=== PATIENT | female | born 1955 ===

== ENCOUNTER 2019-04-19 10:54 | Emergency (ER) | payer OTHER ==
[~2019-04-19] VITALS: Ht 160 cm; Wt 113.4 kg
[~2019-04-19 10:54] MED LIST: ACEBUTCAFT PO; ASCO500; ASPI325EC PO; Ativan1 MG PO; CALCA500CH; CALCAVITD PO; DIGO.125; DIGO.125 PO; ERGO50000 PO; FURO40 PO; FURO80; FURO80 PO; GLIM2 PO; GLIM4 PO; HYDR1TAB94 PO; IRON50; Kristalose20 GM PO; LAMO100; LEVE500 PO; LISI10; LISI20 PO; LISI5 PO; METF500 PO; METF850 PO; METO25 PO; METO25ER PO; MULVITMINE; OXYACE5T PO; PIOG15; PIOG45 PO; PRAV20; PRAV20 PO; PROM25 PO; RANI150 PO; SPIR25; WARF5
[2019-04-19 13:48] LABS: BASOPHILS ABSOLUTE AUTO 0.03 K/mm3 (0.00-0.23); BASOPHILS PERCENT AUTO 0 % (0-2); EOSINOPHILS ABSOLUTE AUTO 0.15 K/mm3 (0.00-0.68); EOSINOPHILS PERCENT AUTO 2 % (0-6); Hematocrit 37.3 % (33.0-51.0); Hemoglobin 12.1 g/dL (11.5-16.0); IMMATURE GRAN ABSOLUTE AUTO 0.01 K/mm3 (0.00-0.10); IMMATURE GRAN PERCENT AUTO 0 % (0-1); LYMPHOCYTES ABSOLUTE AUTO 0.95 K/mm3 (0.84-5.20); LYMPHOCYTES PERCENT AUTO 14 % (21-46); MONOCYTES ABSOLUTE AUTO 0.56 K/mm3 (0.16-1.47); MONOCYTES PERCENT AUTO 8 % (4-13); Mean Corpuscular HGB 31.3 pg (26.0-34.0); Mean Corpuscular HGB Conc 32.4 g/dL (31.5-36.5); Mean Corpuscular Volume 96 fL (80-100); Mean Platelet Volume 11.8 fL (9.1-12.4); NEUTROPHILS PERCENT AUTO 75 % (41-73); Platelet Count 192 K/mm3 (150-400); RDW Coefficient Variation 13.2 % (11.7-14.2); RDW Standard Deviation 47.4 fL (35.1-46.3); Red Blood Cell Count 3.87 M/mm3 (3.80-5.20)
[2019-04-19 14:05] LABS: Albumin, Blood 4.1 g/dL (3.4-5.0); Albumin/Globulin Ratio 1.1 (0.8-1.8); Bilirubin, Total 0.3 mg/dL (0.1-1.0); Bun/Creatinine Ratio 17.9 (12.0-20.0); Calcium, Blood 8.9 mg/dL (8.5-10.1); Creatinine, Blood 2.24 mg/dL (0.40-1.00); Globulin, Blood 3.7 g/dL (2.2-4.0); Potassium, Blood 5.1 mmol/L (3.5-5.5); Total Protein, Blood 7.8 g/dL (6.4-8.2)
[2019-04-19] MEDS ORDERED: Norco 5-325 Ta1 EACH PO (14:32)
== END 2019-04-19 14:55 | disposition home or self-care (01) ==
LOC: ER 10:54
PROVIDERS: Emergency Medicine
DX: M79.604 Pain in right leg (principal); I25.2 Old myocardial infarction; Z86.73 Personal history of transient ischemic attack (TIA), and cerebral infarction without residual deficits; I50.9 Heart failure, unspecified; K21.9 Gastro-esophageal reflux disease without esophagitis; Z87.891 Personal history of nicotine dependence
CPT/HCPCS: 36415; 80053; 85025; 96374; 99283-25; J1170

== ENCOUNTER 2019-04-23 09:51 | Emergency (ER) | payer OTHER ==
[~2019-04-23] VITALS: Ht 160 cm; Wt 108.9 kg
[~2019-04-23 09:51] MED LIST changes: +Norco 5-325 Ta1 EACH PO
[2019-04-23] MEDS ORDERED: Ultram50 MG PO (10:38)
[2019-04-23] MEDS ORDERED: Cyclobenzaprine5 MG PO (10:38)
== END 2019-04-23 10:55 | disposition home or self-care (01) ==
LOC: ER 09:51
DX: M79.604 Pain in right leg (principal); G89.29 Other chronic pain; Z79.899 Other long term (current) drug therapy; Z79.84 Long term (current) use of oral hypoglycemic drugs; Z86.73 Personal history of transient ischemic attack (TIA), and cerebral infarction without residual deficits; I25.2 Old myocardial infarction; I50.9 Heart failure, unspecified; K21.9 Gastro-esophageal reflux disease without esophagitis; N18.9 Chronic kidney disease, unspecified; Z87.891 Personal history of nicotine dependence
CPT/HCPCS: 99283

== ENCOUNTER → 2025-01-18 | Outpatient (CLI) | payer OTHER ==
[~2025-01-18] MED LIST changes: +Cyclobenzaprine5 MG PO; +Ultram50 MG PO
== END | disposition home or self-care (01) ==
LOC: LAB SHORT 08:37 → PLD 08:37 → LAB 08:37
DX: D36.10 Benign neoplasm of peripheral nerves and autonomic nervous system, unspecified (principal); D49.2 Neoplasm of unspecified behavior of bone, soft tissue, and skin
CPT/HCPCS: 88305

== ENCOUNTER 2025-08-03 09:50 | Inpatient (IN) | payer OTHER ==
[~2025-08-03] VITALS: Ht 160 cm; Wt 127.0 kg
[2025-08-03] MEDS ORDERED: CefTRIAXone Sodium 2,000 MG in NS 100 ML IV ONE (12:25)
[2025-08-03] MEDS ORDERED: Ketorolac Tromethamine 30mg Vial IV ONE (12:30)
[2025-08-03 12:39] LABS: Alanine Aminotransfer (ALT/SGP 26.0 U/L (12-78); Albumin, Blood 3.2 g/dL (3.4-5.0); Albumin/Globulin Ratio 0.8 (0.8-1.8); Anion Gap 17.0 mmol/L (3-11); Aspartate Aminotrans (AST/SGOT 44.0 U/L (12-37); Bilirubin, Total 1.4 mg/dL (0.1-1.0); Blood Urea Nitrogen 42.0 mg/dL (8-24); CO2, Blood 19.0 mmol/L (21-32); Calcium, Blood 8.5 mg/dL (8.5-10.1); Chloride, Blood 104.0 mmol/L (98-108); Creatinine, Blood 2.54 mg/dL (0.40-1.00); Globulin, Blood 3.9 g/dL (2.2-4.0); Glucose, Blood 168.0 mg/dL (70-99); Hematocrit 42.1 % (33.0-51.0); Hemoglobin 14.1 g/dL (11.5-16.0); Mean Corpuscular HGB Conc 33.5 g/dL (31.5-36.5); Mean Corpuscular Volume 93 fL (80-100); NRBC ABSOLUTE 0.02 K/mm3 (0.00-0.02); NRBC Auto 0.2 /100 WBC (0.0-0.2); Potassium, Blood 4.5 mmol/L (3.5-5.5); RDW Coefficient Variation 13.2 % (11.7-14.2); RDW Standard Deviation 45.1 fL (35.1-46.3); Sodium, Blood 135.0 mmol/L (136-145); Total Protein, Blood 7.1 g/dL (6.4-8.2)
[2025-08-03] MEDS ORDERED: NS 1,000 ML IV SCH ×3 (13:05→15:20)
[2025-08-03 13:34] LABS: BAND PERCENT MAN 30 % (0-8); BASOPHILS ABSOLUTE MAN 0.00 K/mm3 (0.00-0.23); BASOPHILS PERCENT MAN 0 % (0-2); EOSINOPHILS ABSOLUTE MAN 0.00 K/mm3 (0.00-0.68); EOSINOPHILS PERCENT MAN 0 % (0-6); LYMPHOCYTES ABSOLUTE MAN 0.69 K/mm3 (0.84-5.20); LYMPHOCYTES PERCENT MAN 6 % (21-46); METAMYELOCYTE ABSOLUTE MAN 0.23 K/mm3 (0.00-0.00); METAMYELOCYTE PERCENT MAN 2 % (0-0); MONOCYTES ABSOLUTE MAN 1.04 K/mm3 (0.16-1.47); MONOCYTES PERCENT MAN 9 % (4-13); NEUTROPHILS ABSOLUTE MAN 9.61 K/mm3 (1.96-9.15); SEG NEUTROPHILS PERCENT MAN 53 % (41-73)
[2025-08-03] MEDS ORDERED: Ondansetron HCl 2 MG / ML 2ML Vial IV ONE (13:55)
[2025-08-03 14:05] LABS: pH Blood Venous 7.29 (7.34-7.37)
[2025-08-03] MEDS ORDERED: Insulin Human Lispro 100 Units/ML 3ML Syringe SC SCH (16:30)
[2025-08-03 16:55] LABS: Source, Urine Clean Catch
[2025-08-03] MEDS ORDERED: NS 1,000 ML IV ONE (16:55)
[2025-08-03 17:03] LABS: Color, Urine Yellow (P-Yellow); Glucose Qualitative, Urine Neg (Neg); Ketones, Urine Neg (Neg); Leukocyte Esterase, Urine 1+ (Neg); Protein, Urine 3+ (Neg); Specific Gravity, Urine 1.020 (1.003-1.022); Urobilinogen, Urine 1+ (Normal)
[2025-08-03 17:11] LABS: Bilirubin, Urine 1+ (Neg)
--- NOTE | 2025-08-03 18:40 | NUR ---
PT ADMIT/SHIFT SUMMARY.... PT ARRIVED TO THE UNIT AT 1610. PT IS A&O TO SELF AND FOLLOWING DIRECTIONS, PT HAS DYSPHASIA SHE IS ABLE TO ANSWER "YES/NO" QUESTIONS BUT IS UNABLE TO VERBALIZE ANYTHING ELSE. PT IS IN SR 80'S-90'S BP IS STABLE WITH MAPS>65, LEVOPHED WAS STARTED AT 5MCG/MIN IN THE ED BUT WAS STOPPED UPON ARRIVAL TO THE UNIT AND HAS NOT NEEDED TO BE RESTARTED. PT IS ON RA WITH O2 SATS>95%. BT PRESENT AND HYPOACTIVE. PT HAS GENERALIZED NONPITTING EDEMA. THE PT'S RLE IS RED AND WARM, THE RED AREA WAS MARKED OUT BY THIS RN. THE PT IS ALSO NOTED TO HAVE A YEAST RASH UNDER HER RIGHT BREAST AND PANNUS/GROIN AREA. PURWICK IS IN PLACE.
[2025-08-03 19:00] VITALS: BP 140/71
[2025-08-03 20:00] VITALS: BP 123/82
[2025-08-03] MEDS ORDERED: CeFAZolin Sodium 1,000 MG in NS 50 ML IV SCH (21:00)
[2025-08-03] MEDS ORDERED: Lactobacil 2-S.Thermo-Bifido 1 1 Cap PO SCH (21:00)
[2025-08-03 22:00] VITALS: BP 123/82
[2025-08-03 22:30] VITALS: BP 126/67
--- NOTE | 2025-08-03 22:50 | NUR ---
DR GALARZA PT REPORTS HEARTBURN. CONSULTED, ORDER FOR TUMS PLACED.
--- NOTE | 2025-08-03 23:09 | NUR ---
DR CONSULT PT NEW ONSET VOMITING. NEW ORDER PLACED FOR ZOFRAN PER EMAR.
[2025-08-03] MEDS ORDERED: Ondansetron HCl 2 MG / ML 2ML Vial IV PRN (23:10)
[2025-08-04] VITALS (23 sets, daily range): BP systolic 97–132; BP diastolic 54–81
[2025-08-04 04:04] LABS: Hematocrit 37.7 % (33.0-51.0); Hemoglobin 12.6 g/dL (11.5-16.0); Mean Corpuscular HGB Conc 33.4 g/dL (31.5-36.5); Mean Corpuscular Volume 93 fL (80-100); NRBC ABSOLUTE 0.00 K/mm3 (0.00-0.02); NRBC Auto 0.0 /100 WBC (0.0-0.2); Platelet Count 113 K/mm3 (150-400); RDW Coefficient Variation 13.5 % (11.7-14.2); RDW Standard Deviation 46.5 fL (35.1-46.3)
[2025-08-04 04:41] LABS: Anion Gap 15.0 mmol/L (3-11); Blood Urea Nitrogen 45.0 mg/dL (8-24); CO2, Blood 20.0 mmol/L (21-32); Calcium, Blood 7.5 mg/dL (8.5-10.1); Chloride, Blood 105.0 mmol/L (98-108); Creatinine, Blood 2.6 mg/dL (0.40-1.00); Glucose, Blood 159.0 mg/dL (70-99); Potassium, Blood 4.6 mmol/L (3.5-5.5); Sodium, Blood 135.0 mmol/L (136-145)
--- NOTE | 2025-08-04 04:49 | NUR ---
DR GEOVANNI PT CONTINUES EMESIS DESPITE ANTIEMETIC PER EMAR. MD TO PLACE ORDER FOR ADDITIONAL ANTI-NAUSEA MEDICATION. MD AWARE OF PT LOW URINE OUTPUT c CURRENT IV FLUID RATE. NO NEW ORDERS AT THIS TIME.
[2025-08-04] MEDS ORDERED: Prochlorperazine Edisylate 10 mg Vial IV PRN (04:50)
--- NOTE | 2025-08-04 06:19 | NUR ---
SHIFT SUMMARY S/P LLE CELLULITIS. VSS: O2 SAT >95% ON RA, MAP >65, SINUS TACH. HX: EXPRESSIVE DYSPHAGIA, PT OFTEN DIFFICULT TO UNDERSTAND. EMESIS, RELIEF c MEDICATION PER EMAR. RLE RED, HAS NOT SPREAD BEYOND OUTLINED AREA, EDEMA 3+. PT REPORTS PAIN c TOUCH/MOVEMENT TO R SIDE, DENIES NEED FOR PAIN MEDICATION. PUREWICK IN USE, MIN OUTPUT. NO BM THIS SHIFT. IV FLUIDS INFUSING PER EMAR. ANTICIPATED TO RESTART HOME MEDICATION TODAY. CALL LIGHT IN REACH, WILL REPORT TO DAY RN.
[2025-08-04] MEDS ORDERED: Enoxaparin 30 MG/0.3 ML SYR SC SCH (09:00)
[2025-08-04] MEDS ORDERED: Enoxaparin 40 MG/0.4 ML SYR SC SCH (09:00)
--- NOTE | 2025-08-04 09:34 | NUR ---
AM NOTE... ASSUMED CARE OF PT AT 0700, PT IS A&Ox3 ABLE TO ANSWER "YES/NO" QUESTIONS. PT IS IN SINUS TACH 100'S-110'S BP IS STABLE WITH MAPS>65. PT IS ON RA WITH O2 SATS, EXP WHEEZE HEARD IN THE RUL CLEAR AND DIM T/O OTHER LOBES. BT ARE PRESENT AND HYPOACTIVE, ABD IS SOFT AND NONTENDER TO PALPATION. THE PT'S RLE CONTINUES TO BE RED AND WARM TO THE TOUCH, VERY PAINFUL WITH ANY LIGHT TOUCH/MOVMENT PER THE PT. THE PT'S IS AT THE BEDSIDE THIS AM.
[2025-08-04] MEDS ORDERED: Miconazole Nitrate 2% 85 GM PWD TOP PRN (09:55)
--- NOTE | 2025-08-04 18:22 | NUR ---
SHIFT SUMMARY.... NO ACUTE NEGATIVE CHANGES NOTED THIS SHIFT. PT HAS BEEN IN SR/ST 80'S-100'S SPBs HAVE BEEN IN THE 100'S-120'S MAPS>65. PT HAD 1 CONT MED BM THIS SHIFT IN THE BEDPAN. PT HAS NOT VOIDED THIS SHIFT, BLADDER SCAN WAS DONE THAT SHOWED 420MLS, PROVIDER NOTIFIED, NEW ORDERS FOR ST CATH WERE GIVEN. THE PT HAS DENIED ANY NAUSEA THIS SHIFT, SHE HAD 1 COUGHING EPISODE THE LED TO A SMALL AMOUNT OF EMESIS (APROX 20MLS). PT WAS MEDICATED FOR PAIN ONCE WITH TYLENOL WHICH WORKED WELL FOR HER. THE PT'S MARCEL HAS BEEN AT THE BEDSIDE OFF AND ON T/O THIS SHIFT, HE WAS UPDATED ON THE PT'S CONDITION AND PLAN OF CARE. NS RUNNING AT 100MLS/HR. PURWICK IN PLACE WITH NO OUTPUT THIS SHIFT.
[2025-08-05] VITALS (12 sets, daily range): BP systolic 112–150; BP diastolic 63–89
--- NOTE | 2025-08-05 00:15 | NUR ---
PROVIDER NOTIFICATION DR WISEMAN NOTIFIED OF RHYTHM CHANGE FROM SINUS TO AFIB, 90'S-100'S, ASYMPTOMATIC. ORDERS RECEIVED FOR 2D ECHO AND LABS THIS AM.
[2025-08-05 03:43] LABS: Hematocrit 34.7 % (33.0-51.0); Hemoglobin 11.8 g/dL (11.5-16.0); Mean Corpuscular HGB Conc 34.0 g/dL (31.5-36.5); Mean Corpuscular Volume 94 fL (80-100); NRBC ABSOLUTE 0.00 K/mm3 (0.00-0.02); NRBC Auto 0.0 /100 WBC (0.0-0.2); Platelet Count 110 K/mm3 (150-400); RDW Coefficient Variation 13.4 % (11.7-14.2); RDW Standard Deviation 46.0 fL (35.1-46.3)
[2025-08-05 03:57] LABS: Anion Gap 12.0 mmol/L (3-11); Blood Urea Nitrogen 43.0 mg/dL (8-24); CO2, Blood 18.0 mmol/L (21-32); Calcium, Blood 7.7 mg/dL (8.5-10.1); Chloride, Blood 108.0 mmol/L (98-108); Creatinine, Blood 2.31 mg/dL (0.40-1.00); Glucose, Blood 142.0 mg/dL (70-99); Potassium, Blood 4.0 mmol/L (3.5-5.5); Sodium, Blood 134.0 mmol/L (136-145)
--- NOTE | 2025-08-05 05:43 | NUR ---
SHIFT SUMMARY A/O X4, BUT DIFFICULT TO UNDERSTAND SOME RESPONSES DUE TO EXPRESSIVE APHASIA, FOLLOWS COMMANDS APPROP. CONVERTED FROM SINUS TO AFIB AROUND MIDNIGHT, THEN ALTERNATED BETWEEN SINUS W/PAC'S AND AFIB, RATE 90'S-100'S, ASYMPTOMATIC, DR WISEMAN NOTIFIED, ORDERS RECEIVED. BP REMAINED STABLE T/O SHIFT, AFEBRILE. NO CHANGE NOTED IN RIGHT LEG CELLULITS, ELEVATED ON PILLOW AND HELPED REPOSITION PT Q2HR. WILL UPDATE DAY RN WITH OUTSTANDING ISSUES.
--- NOTE | 2025-08-05 18:09 | NUR ---
SHIFT SUMMARY: PT IS ALERT AND ORIENTED X 4, ABLE TO FOLLOW COMMANDS AND COMMUNICATE NEEDS DESPITE HER EXPRESSIVE APHASIA. PT C/O 8/10 PAIN TO RLE, PRN PAIN MEDS GIVEN PER MAR WITH GOOD EFFECT. PT REMAINS ON RA WITH SPO2 ABOVE 95% NO RESP DISTRESS NOTED. PT IN SR TO ST WITH HR BETWEEN 80-105, OCCASIONAL PAC'S, BP STABLE. RLE REDNESS/SWELLING IMPROVING, RLE ELEVATED. PT UP IN CHAIR WITH LIFT FROM [id number], TOLERATED WELL. APPETITE IMPROVED, TOLERATING LIQUIDS AND SOLIDS. PUREWICK IN PLACE, 700ML URINE OUTPUT, 1 INCONTINENT VOID. NO BM THIS SHIFT. PLAN OF CARE ONGOING.
--- NOTE | 2025-08-05 20:00 | NUR ---
ASSUMPTION OF CARE CARE OF PT ASSUMED FOLLOWING BEDSIDE SHIFT REPORT FROM DAY RN. PT LYING IN BED IN NO APPARENT DISTRESS. PT ALERT AND ORIENTED BUT EXPRESSIVE APHASIA PRESENT. VSS. PT IN SINUS RHYTHM WITH PAC'S VS ARRYTHMIA. BP STABLE. MILD WHEEZING UADIBLE WITHOUT STETHESCOPE BUT PT DENIES NEED FOR BREATHING TREATEMENT AT THIS TIME. PT DENIES CHEST PAIN/PRESSURE, SOB, AB PAIN, N/V. LOWER QUADRANT BOWEL SOUNDS DIFFICULT TO APPRECIATE. PUREWICK IN PLACE TO SUCTION. PT C/O OF SEVERE PAIN IN RLE; WILL ADVOCATE FOR ADDITIONAL PAIN MEDICATION. WILL REVIEW AND CONTINUE PLAN OF CARE.
[2025-08-06] VITALS (11 sets, daily range): BP systolic 99–131; BP diastolic 53–91
[2025-08-06 04:20] LABS: BASOPHILS ABSOLUTE AUTO 0.02 K/mm3 (0.00-0.23); BASOPHILS PERCENT AUTO 0 % (0-2); EOSINOPHILS ABSOLUTE AUTO 0.02 K/mm3 (0.00-0.68); EOSINOPHILS PERCENT AUTO 0 % (0-6); Hematocrit 33.7 % (33.0-51.0); Hemoglobin 11.0 g/dL (11.5-16.0); IMMATURE GRAN ABSOLUTE AUTO 0.07 K/mm3 (0.00-0.10); IMMATURE GRAN PERCENT AUTO 1 % (0-1); LYMPHOCYTES ABSOLUTE AUTO 0.42 K/mm3 (0.84-5.20); LYMPHOCYTES PERCENT AUTO 3 % (21-46); MONOCYTES ABSOLUTE AUTO 0.46 K/mm3 (0.16-1.47); MONOCYTES PERCENT AUTO 4 % (4-13); Mean Corpuscular HGB Conc 32.6 g/dL (31.5-36.5); Mean Corpuscular Volume 94 fL (80-100); NEUTROPHILS ABSOLUTE AUTO 11.80 K/mm3 (1.96-9.15); NEUTROPHILS PERCENT AUTO 92 % (41-73); NRBC ABSOLUTE 0.00 K/mm3 (0.00-0.02); NRBC Auto 0.0 /100 WBC (0.0-0.2); Platelet Count 125 K/mm3 (150-400); RDW Coefficient Variation 13.5 % (11.7-14.2); RDW Standard Deviation 46.4 fL (35.1-46.3)
[2025-08-06 04:41] LABS: Alanine Aminotransfer (ALT/SGP 13.0 U/L (12-78); Albumin, Blood 2.1 g/dL (3.4-5.0); Albumin/Globulin Ratio 0.6 (0.8-1.8); Anion Gap 12.0 mmol/L (3-11); Aspartate Aminotrans (AST/SGOT 24.0 U/L (12-37); Bilirubin, Total 0.4 mg/dL (0.1-1.0); Blood Urea Nitrogen 36.0 mg/dL (8-24); CO2, Blood 18.0 mmol/L (21-32); Calcium, Blood 7.6 mg/dL (8.5-10.1); Chloride, Blood 109.0 mmol/L (98-108); Creatinine, Blood 1.86 mg/dL (0.40-1.00); Globulin, Blood 3.6 g/dL (2.2-4.0); Glucose, Blood 137.0 mg/dL (70-99); Potassium, Blood 4.0 mmol/L (3.5-5.5); Sodium, Blood 135.0 mmol/L (136-145); Total Protein, Blood 5.7 g/dL (6.4-8.2)
--- NOTE | 2025-08-06 07:21 | NUR ---
SHIFT SUMMARY PT LYING IN BED IN NO APPARENT DISTRESS, ALERT AND ORIENTED TO ALL, AFEBRILE, EXPRESSIVE APHASIA STILL PRESENT BUT PT CAN BE UNDERSTOOD MOST OF THE TIME. PT STAYED IN SINUS RHYTHM THROUGOUT SHIFT 80-110, WITH STABLE BP. O2 SATURATION WAS > 95% EACH TIME CHECKED. PT STARTED COUGHING DURING MIDDLE OF SHIFT, NON-PRODUCTIVE. PT DENIED CHEST PAIN/PRESSURE, SOB, AB PAIN, N/V ALL SHIFT. I ASKED PT ABOUT BEGINNING MILD BOWEL REGIMEN BUT SHE DID NOT WISH TO PROCEED. PUREWICK IN PLACE TO SUCTION. ONLY 300ML OUT ALL SHIFT, YELLOW. RIGHT LEG CONTINUES TO BE WARM, RED, AND SWOLLEN (AND WEAPING) EVEN WITH ELEVATION ALL SHIFT. PAIN WAS CONTROLLED WITH TRAMADOL AND OXYCODONE (ADDED DURING SHIFT). BEDSIDE SHIFT REPORT GIVEN TO DAY RN.
[2025-08-06 10:51] LABS: Influenza A/2009-H1 Not Detected (NOT DETECT); SARS-Cov-2 (COVID-19), BioFire Not Detected (NOT DETECT)
[2025-08-06] MEDS ORDERED: Vancomycin HCL 2,500 MG in NS 500 ML IV ONE (11:45)
[2025-08-06] MEDS ORDERED: N-Acetylcysteine 600 MG CAP PO SCH (12:00)
[2025-08-06] MEDS ORDERED: Vancomycin (Pharmacy Consult) IV SCH (12:00)
[2025-08-06] MEDS ORDERED: CeFAZolin Sodium 1,000 MG in NS 50 ML IV SCH (16:00)
--- NOTE | 2025-08-06 17:17 | NUR ---
SHIFT SUMMARY PT AWAKE AND ALERT AT TIME OF BEDSIDE REPORT. PT A/OX4 W/ EXPRESSIVE APHASIA AND RIGHT SIDED DEFICIT/CONTRACTURE TO RUE FROM PREVIOUS CVA. PT REPORT 2-5/10 PAIN IN RLE THAT IS RELIEVED W/ MEDS PER MAR. PT IS ABLE TO CALL APPROPRIATELY AND MAKE NEEDS KNOWN. Q2 TURNS. PT WAS UP IN CHAIR FROM [id number], TOLERATED WELL. RLE ELEVATED T/O SHIFT W/ PILLOWS. SATURATING >95% ON RA, LUNGS SOUNDS DIM T/O. NSR ON MONITOR, CAP REFILL<3 REFILL, +4 EDEMA TO RLE, +1 GENERALIZED, +1 TO LUE. PIV WAS PLACED ON LAC, FLUSHED WELL, ABOUT 50% OF IV ABX WAS INFUSED BEFORE PIV INFILTRATED RESULTING IN SWELLING IN LUE. PHARMACY WAS CONSULTED, RECOMMENDED COLD COMPRESS TO AREA X 20 MINUTES QID FOR 2 DAYS. ABD SOFT AND NONTENDER, BOWEL SOUNDS ACTIVE, MEALS TOLERATED T/O DAY. PT CONTINENT, PUREWICK IN PLACE FOR COMFORT/PT PREFERENCE. RLE W/ MARKED REDNESS NOT EXTENDING PAST PREVIOUSLY DRAWN BORDER. MEPILEX IN PLACE TO COCCYX, SEE WOUND PHOTOS IN CHART. MEPILEX ON POSTERIOR RLE, PHOTOS IN CHART. ACCESS: [facility]
--- NOTE | 2025-08-06 19:00 | NUR ---
ASSUMPTION OF CARE CARE OF PT ASSUMED FOLLOWING BEDSIDE SHIFT REPORT FROM DAY RN. PT LYING IN BED IN NO APPARENT DISTRESS. PT ALERT AND ORIENTED BUT EXPRESSIVE APHASIA PRESENT. VSS. PT IN SINUS RHYTHM WITH PAC'S. BP STABLE. PT DENIES CHEST PAIN/PRESSURE, SOB, AB PAIN, N/V. PUREWICK IN PLACE TO SUCTION. PT C/O OF SEVERE PAIN IN RLE. WILL REVIEW AND CONTINUE PLAN OF CARE.
[2025-08-06] MEDS ORDERED: Enoxaparin 40 MG/0.4 ML SYR SC SCH (21:00)
--- NOTE | 2025-08-06 22:15 | NUR ---
PATIENT IS PCU STATUS AND IS BEING MOVED FROM ICU 6 TO PCU 13. REPORT WAS RECIEVED FROM ICU NURSE LALO. AFTER REPORT WAS GIVEN, THIS NURSE HAD NO FURTHER QUESTIONS, COMMENTS, OR CONCERNS AT THIS TIME. PATIENT WAS MOVED FROM ICU TO PCU IN THE BED AND SLID OVER TO THE PCU BED. PATIENT IS A&OX4 WITH EXPRESSIVE APHAGIA AND RIGHT SIDED HEMIPARALISIS DUE TO HX OF CVA. VITALS ARE STABLE AND IS ON ROOM AIR WITH >90% SPO2. TELE IS SINUS RHYTHM @ 80'S BPM. PAIN MEDICATIONS WERE GIVEN BY THE ICU NURSE PRIOR TO TRANSPORT. PATIENT IS LAYING IN BED WITH CALL LIGHT IN REACH. SPOUSE DANIEL WAS CALLED WITH THE NEW ROOM UPDATE WELL.
[2025-08-07 03:13] VITALS: BP 106/69
[2025-08-07 03:29] LABS: Hematocrit 32.1 % (33.0-51.0); Hemoglobin 10.5 g/dL (11.5-16.0); Mean Corpuscular HGB Conc 32.7 g/dL (31.5-36.5); Mean Corpuscular Volume 93 fL (80-100); NRBC ABSOLUTE 0.00 K/mm3 (0.00-0.02); NRBC Auto 0.0 /100 WBC (0.0-0.2); Platelet Count 145 K/mm3 (150-400); RDW Coefficient Variation 13.7 % (11.7-14.2); RDW Standard Deviation 46.9 fL (35.1-46.3)
[2025-08-07 03:46] LABS: Anion Gap 10.0 mmol/L (3-11); Blood Urea Nitrogen 36.0 mg/dL (8-24); CO2, Blood 22.0 mmol/L (21-32); Calcium, Blood 7.8 mg/dL (8.5-10.1); Chloride, Blood 103.0 mmol/L (98-108); Creatinine, Blood 1.97 mg/dL (0.40-1.00); Glucose, Blood 152.0 mg/dL (70-99); Potassium, Blood 4.4 mmol/L (3.5-5.5); Sodium, Blood 131.0 mmol/L (136-145)
--- NOTE | 2025-08-07 04:38 | NUR ---
SHIFT SUMMARY: NO SIGNIFICANT CHANGES SINCE TRANSFERRED FROM ICU. PATIENT IS A&OX4 WITH EXPRESSIVE APHAGIA AND RIGHT HEMIPARALISIS DUE TO HX OF CVA. SHE IS ABLE TO COMMUNICATE AT TIMES WITH HAND GESTURES WHEN SHE IS UNABLE TO THINK OF WORDS. VITALS ARE STABLE AND FOR MAJORITY OF THE SHIFT WAS ON ROOM AIR WITH >90% SPO2. HOWEVER, SHE HAD ONE APNEIC EPISODE WHILE SLEEPING WITH SPO2 IN THE LOW 70'S WHICH ONCE SHE WAS WOKEN UP/AWAKE HER SPO2 WAS >90% ON ROOM AIR BUT 2L OF OXYGEN NC WAS PLACED TO PREVENT ANOTHER DESAT OF HER SPO2. TELE SHOWS SINUS RHYTHM IN THE 80'S BPM. 2P ASSIST WHEN REPOSITIONING IN BED. RLE ELEVATED WITH PILLOWS DUE TO SEVERE EDEMA AND HAS REDNESS DUE TO DIAGNOSIS OF CELLULITIS. Q2H REPOSITIONING TOLERATED. MEPLIEX ON COCCYX - WAS UNABLE TO CHANGE DUE TO NOT HAVING A COMPLETE VIEW OF IT BUT WAS C/D/I. PATIENT IS LAYING IN BED WITH CALL LIGHT IN REACH. CALLS APPROPRIATELY AND IS ABLE TO MAKE NEEDS KNOWN.
[2025-08-07 07:53] VITALS: BP 135/75
[2025-08-07 12:46] VITALS: BP 119/49
[2025-08-07 16:39] VITALS: BP 128/60
--- NOTE | 2025-08-07 18:35 | NUR ---
SHIFT SUMMARY: PT HAS BEEN A&Ox4, Hx OF EXPRESSIVE APHASIA BUT ABLE TO ANSWER QUESTIONS AND COMMUNICATE NEEDS EFFECTIVELY. NO CHANGE T/OUT THE SHIFT TO PT's R SIDE HEMIPARESIS WELL CONTRACTURE TO RUE. PT DENIES SOB, O2 SATS >93% ON RA WHILE AWAKE. PT DENIES CP, SR ON MONITOR, RATE 70s-80s. RLE IS RED, EDEMATOUS, PAINFUL TO TOUCH, PT DENIES PAIN MEDICATION, REDNESS DOES APPEAR TO BE RECEDING FROM LINE THAT WAS MARKED ON THIGH. DIURETIC INITIATED THIS SHIFT PER EMAR. EXTREMITY HAS BEEN ELEVATED ON PILLOWS. PT TOLERATING CC DIET. PUREWICK PATENT, DRAINING LIGHT YELLOW URINE TO LOW CONT SUCTION. MEPILEX TO COCCYX AND R POSTERIOR THIGH. PT CURRENTLY RESTING IN BED W/ CALL LIGHT IN REACH.
[2025-08-07 20:25] VITALS: BP 114/57
[2025-08-07 23:13] VITALS: BP 124/60
[2025-08-08 03:36] VITALS: BP 127/67
[2025-08-08 04:59] LABS: Hematocrit 34.7 % (33.0-51.0); Hemoglobin 11.4 g/dL (11.5-16.0); Mean Corpuscular HGB Conc 32.9 g/dL (31.5-36.5); Mean Corpuscular Volume 94 fL (80-100); NRBC ABSOLUTE 0.03 K/mm3 (0.00-0.02); NRBC Auto 0.3 /100 WBC (0.0-0.2); Platelet Count 174 K/mm3 (150-400); RDW Coefficient Variation 13.6 % (11.7-14.2); RDW Standard Deviation 46.2 fL (35.1-46.3)
--- NOTE | 2025-08-08 05:34 | NUR ---
SHIFT SUMMARY: NO SIGNIFICANT CHANGES DURING THIS SHIFT. PATIENT IS A&OX4 WITH EXPRESSIVE APHASIA AND RIGHT SIDED HEMIPARALISIS DUE TO HX OF CVA. VITALS ARE STABLE AND HAS BEEN ON ROOM AIR WITH >90% SPO2. TELE SHOWED SINUS RHYTHM IN THE 80'S BPM THROUGHOUT SHIFT. PATIENT HAS REFUSED PAIN MEDICATIONS THROUGHOUT SHIFT. POWERGLIDE IN TAE FLUSHES BUT DOES NOT DRAW BLOOD ANYMORE. RLE WITH CELLULITIS CONTINUES TO HAVE REDNESS BUT HAS BEEN PRODUCING A LARGE INCREASE OF PURULENT WEEPING OUTPUT - PAPER CHUCKS ARE NOW UNDERNEATH BOTH THE PILLOWS TO ELEVATE EXTREMITY AND THE BED. PUREWICK IN PLACE AND ON LOW CONTINUOUS SUCTION WITH YELLOW URINE OUTPUT. PATIENT IS CURRENTLY LAYING IN BED WITH CALL LIGHT IN REACH. SHE IS ABLE TO MAKE HER NEEDS KNOWN AND USES THE CALL LIGHT APPROPRIATELY.
[2025-08-08 05:39] LABS: Magnesium, Blood 1.7 mg/dL (1.6-2.4)
[2025-08-08 06:00] LABS: Albumin, Blood 1.7 g/dL (3.4-5.0); Anion Gap 14 mmol/L (3-11); Blood Urea Nitrogen 36 mg/dL (8-24); CO2, Blood 18 mmol/L (21-32); Calcium, Blood 8.3 mg/dL (8.5-10.1); Chloride, Blood 103 mmol/L (98-108); Creatinine, Blood 1.86 mg/dL (0.40-1.00); Glucose, Blood 139 mg/dL (70-99); Phosphorus, Blood 2.8 mg/dL (2.5-4.9); Potassium, Blood 3.8 mmol/L (3.5-5.5); Sodium, Blood 131 mmol/L (136-145)
[2025-08-08 07:56] VITALS: BP 131/66
[2025-08-08 12:00] VITALS: BP 128/75
[2025-08-08 13:14] LABS: Vancomycin, Trough 22.6 ug/mL (5.0-10.0)
[2025-08-08 16:45] VITALS: BP 124/70
--- NOTE | 2025-08-08 18:40 | NUR ---
SHIFT SUMMARY: PT CONTINUES ALERT, Ox4, ANSWERING QUESTIONS AND COMMUNICATING NEEDS TO THE BEST OF HER ABILITY GIVEN HER EXPRESSIVE APHASIA. PT DENIES SOB, O2 SATS >93% ON RA. PT DENIES CP, SR 80s ON MONITOR, VSS. REDNESS AND EDEMA TO RLE HAVE SLIGHTLY IMPROVED COMPARED TO YESTERDAY, IV ABX ADMINISTERED PER ORDERS, RLE ELEVATED ON PILLOWS T/OUT THE DAY. PUREWICK IN PLACE, DRAINING LIGHT YELLOW URINE TO LOW CONT SUCTION. MEPILEX ON COCCYX AND R POSTERIOR THIGH HAVE BEEN CHANGED THIS SHIFT. NO BM SINCE 08/04, BOWEL CARE ORDERS PLACED, INITIATED THIS AM. PT's SPOUSE TO BEDSIDE x2 TODAY, EXPRESSES CONCERNS RE: THERAPY PLAN WITH RLE BEING PAINFUL W/MOVEMENT, PROVIDER HAS BEEN NOTIFIED OF CONCERNS.
[2025-08-08 20:02] VITALS: BP 118/61
[2025-08-09 04:12] VITALS: BP 129/68
--- NOTE | 2025-08-09 06:09 | NUR ---
PT STABLE THROUGHOUT SHIFT. PT AOX3-4, ABLE TO USE CALL LIGHT AND MAKE NEEDS KNOWN. PT DOES HAVE SOME EXPRESSIVE APHASIA AND RIGHT SIDED DEFICIT FROM PREVIOUS CVA-UNCHANGED THIS SHIFT. PT DID C/O HEADACHE X2 AND WAS MEDICATED WITH APAP WITH GOOD EFFECT BOTH TIME. PURE WICK IN PLACE. PT HAD GOOD URINARY OUTPUT. RT LEG REMAINS REDDENED AND EDEMATOUS WITH SOME WEEPING OF SEROUS FLUID. VITAL SIGNS REMAIN WNL. PT TOLERATING IV ABX WELL.
[2025-08-09 06:18] LABS: Albumin, Blood 1.9 g/dL (3.4-5.0); Anion Gap 13 mmol/L (3-11); Blood Urea Nitrogen 38 mg/dL (8-24); CO2, Blood 22 mmol/L (21-32); Calcium, Blood 8.3 mg/dL (8.5-10.1); Chloride, Blood 101 mmol/L (98-108); Creatinine, Blood 1.78 mg/dL (0.40-1.00); Glucose, Blood 164 mg/dL (70-99); Phosphorus, Blood 2.7 mg/dL (2.5-4.9); Potassium, Blood 3.3 mmol/L (3.5-5.5); Sodium, Blood 133 mmol/L (136-145)
[2025-08-09 07:54] VITALS: BP 142/80
[2025-08-09 12:36] LABS: Anion Gap 11.0 mmol/L (3-11); Blood Urea Nitrogen 37.0 mg/dL (8-24); CO2, Blood 25.0 mmol/L (21-32); Calcium, Blood 8.8 mg/dL (8.5-10.1); Chloride, Blood 100.0 mmol/L (98-108); Creatinine, Blood 1.83 mg/dL (0.40-1.00); Glucose, Blood 190.0 mg/dL (70-99); Potassium, Blood 3.2 mmol/L (3.5-5.5); Sodium, Blood 133.0 mmol/L (136-145)
[2025-08-09] MEDS ORDERED: Cefepime HCl 2,000 MG in NS 100 ML IV SCH (13:00)
[2025-08-09] MEDS ORDERED: Polyethylene Glycol 3350 17 gm PO PRN (14:20)
[2025-08-09 14:49] VITALS: BP 140/76
[2025-08-09] MEDS ORDERED: Potassium Chloride 10 Meq Tablet SA PO ONE (15:00)
[2025-08-09] MEDS ORDERED: CeFAZolin Sodium 2,000 MG in NS 100 ML IV SCH (16:00)
--- NOTE | 2025-08-09 17:59 | NUR ---
PT TRANSFERRED TO 329 REPORT GIVEN TO THOMAS CARVAJAL. NO ACUTE CHANGE FOR THE SHIFT. VITALS HAS BEEN STBALE. PT HAS TO UNDERSTAND DUE TO APHASIA CAN COMMUNICATE VIA CLOSE ENDED QUESTIONS. PT'S RIGHT LEG HAS SOME INCREASED SWELLING FOR THE SHIFT LEGS ELEVATED IN PILLOWS, RED AND VERY PAINFUL TO TOUCH PT DECLINED PAIN MEDS. IV ABX SWITCHED TO CEFEPIME. CAME IN TO VISIT AWARE OF THE PLAN OF CARE. PT ABLE TO WORK WITH PT/OT UNABLE TO DO MUCH DUE TO PAIN. PT CONTINUES TO DIUERESE PUREWICK IN PLACE. REPOSITIONED FOR COMFORT. NO OTHER ISSUES REPORTED ALL BELONGINGS SENT WITH THE PT
[2025-08-09 19:31] VITALS: BP 137/72
[2025-08-09] MEDS ORDERED: NS 250 ML IV PRN (19:55)
[2025-08-10 03:04] VITALS: BP 111/59
--- NOTE | 2025-08-10 04:16 | NUR ---
SHIFT SUMMARY PATIENT IS ALERT AND ORIENTED. PATIENT HAS HAD NO ACUTE EVENTS THIS SHIFT. VITAL SIGNS REVIEWED. PATIENTS LEGS HAS BEEN ELEVATED DUE TO SWELLING. PATIENT DENIED NEEDS FOR PAIN MEDS. NO COMPLAINTS OF SOB, NAUSEA OR VOMITTING THIS SHIFT. PATIENT CONTINUES TO HAVE EXPRESSIVE APHASIA. PATIENT TAKES MEDS ONE AT A TIME. IV ABX INFUSED ORDERED. PUREWICK IN PLACE DRAINING KELSIE URINE. BED IN LOCKED AND LOWEST POSITION. CALL LIGHT IN PLACE.
[2025-08-10 06:05] LABS: Hematocrit 34.1 % (33.0-51.0); Hemoglobin 11.5 g/dL (11.5-16.0); Mean Corpuscular HGB Conc 33.7 g/dL (31.5-36.5); Mean Corpuscular Volume 92 fL (80-100); NRBC ABSOLUTE 0.00 K/mm3 (0.00-0.02); NRBC Auto 0.0 /100 WBC (0.0-0.2); Platelet Count 249 K/mm3 (150-400); RDW Coefficient Variation 13.2 % (11.7-14.2); RDW Standard Deviation 44.6 fL (35.1-46.3)
[2025-08-10 06:28] LABS: Albumin, Blood 1.9 g/dL (3.4-5.0); Anion Gap 12 mmol/L (3-11); Blood Urea Nitrogen 39 mg/dL (8-24); CO2, Blood 25 mmol/L (21-32); Calcium, Blood 8.4 mg/dL (8.5-10.1); Chloride, Blood 99 mmol/L (98-108); Creatinine, Blood 1.75 mg/dL (0.40-1.00); Glucose, Blood 176 mg/dL (70-99); Phosphorus, Blood 2.1 mg/dL (2.5-4.9); Potassium, Blood 3.5 mmol/L (3.5-5.5); Sodium, Blood 132 mmol/L (136-145)
[2025-08-10 06:29] LABS: BAND PERCENT MAN 4 % (0-8); BASOPHILS ABSOLUTE MAN 0.00 K/mm3 (0.00-0.23); BASOPHILS PERCENT MAN 0 % (0-2); EOSINOPHILS ABSOLUTE MAN 0.11 K/mm3 (0.00-0.68); EOSINOPHILS PERCENT MAN 1 % (0-6); LYMPHOCYTES ABSOLUTE MAN 1.76 K/mm3 (0.84-5.20); LYMPHOCYTES PERCENT MAN 16 % (21-46); METAMYELOCYTE ABSOLUTE MAN 0.33 K/mm3 (0.00-0.00); METAMYELOCYTE PERCENT MAN 3 % (0-0); MONOCYTES ABSOLUTE MAN 1.10 K/mm3 (0.16-1.47); MONOCYTES PERCENT MAN 10 % (4-13); MYELOCYTE ABSOLUTE MAN 0.11 K/mm3 (0.00-0.00); MYELOCYTE PERCENT MAN 1 % (0-0); NEUTROPHILS ABSOLUTE MAN 7.61 K/mm3 (1.96-9.15); SEG NEUTROPHILS PERCENT MAN 65 % (41-73)
[2025-08-10 07:11] VITALS: BP 115/68
[2025-08-10] MEDS ORDERED: Potassium Phos/Sodium Phos 250 MG PACK PO SCH (13:00)
[2025-08-10 15:33] VITALS: BP 139/75
--- NOTE | 2025-08-10 18:02 | NUR ---
End of shift report: Patient is alert and oriented x4; pleasant and cooperative with care. Patient with noted left sided weakness and expressive aphasia from previous stroke. Patient with cellulitus to left lower extremity and repostioning for comfort. Patient denies SOB, CP, N/V/D today; but does have generalized pain, increased with cares. All medications administered per EMAR 1 at a time with water. No acute changes this shift. Patient utilizing call light appropriately; call light within reach and bed in lowest position. Will continue to monitor until next shift nurse arrives and report is given.
[2025-08-10 20:04] VITALS: BP 118/62
[2025-08-10 20:21] LABS: Vancomycin, Trough 26.7 ug/mL (5.0-10.0)
[2025-08-11 04:32] VITALS: BP 126/69
--- NOTE | 2025-08-11 04:40 | NUR ---
SHIFT SUMMARY; PATIENT SLEPT IN LONG INTERVALS, MEDICATED X 2 FOR LEG PAIN. INCONT OF URINE AND ONLY A SMEAR OF BM. RLE LESS REDNESS NOTED. UP ON 2 PILLOWS .
[2025-08-11 05:24] LABS: BASOPHILS ABSOLUTE AUTO 0.07 K/mm3 (0.00-0.23); BASOPHILS PERCENT AUTO 1 % (0-2); EOSINOPHILS ABSOLUTE AUTO 0.03 K/mm3 (0.00-0.68); EOSINOPHILS PERCENT AUTO 0 % (0-6); Hematocrit 34.4 % (33.0-51.0); Hemoglobin 11.5 g/dL (11.5-16.0); IMMATURE GRAN ABSOLUTE AUTO 1.16 K/mm3 (0.00-0.10); IMMATURE GRAN PERCENT AUTO 10 % (0-1); LYMPHOCYTES ABSOLUTE AUTO 1.20 K/mm3 (0.84-5.20); LYMPHOCYTES PERCENT AUTO 10 % (21-46); MONOCYTES ABSOLUTE AUTO 0.96 K/mm3 (0.16-1.47); MONOCYTES PERCENT AUTO 8 % (4-13); Mean Corpuscular HGB Conc 33.4 g/dL (31.5-36.5); Mean Corpuscular Volume 92 fL (80-100); NEUTROPHILS ABSOLUTE AUTO 8.18 K/mm3 (1.96-9.15); NEUTROPHILS PERCENT AUTO 71 % (41-73); NRBC ABSOLUTE 0.00 K/mm3 (0.00-0.02); NRBC Auto 0.0 /100 WBC (0.0-0.2); Platelet Count 219 K/mm3 (150-400); RDW Coefficient Variation 13.1 % (11.7-14.2); RDW Standard Deviation 44.2 fL (35.1-46.3)
[2025-08-11 06:06] LABS: Albumin, Blood 2.0 g/dL (3.4-5.0); Anion Gap 10 mmol/L (3-11); Blood Urea Nitrogen 42 mg/dL (8-24); CO2, Blood 28 mmol/L (21-32); Calcium, Blood 8.4 mg/dL (8.5-10.1); Chloride, Blood 97 mmol/L (98-108); Creatinine, Blood 1.64 mg/dL (0.40-1.00); Glucose, Blood 202 mg/dL (70-99); Magnesium, Blood 1.7 mg/dL (1.6-2.4); Phosphorus, Blood 2.6 mg/dL (2.5-4.9); Potassium, Blood 3.6 mmol/L (3.5-5.5); Sodium, Blood 131 mmol/L (136-145)
[2025-08-11 09:31] VITALS: BP 112/72
[2025-08-11 15:28] VITALS: BP 104/70
--- NOTE | 2025-08-11 15:37 | NUR ---
SHIFT SUMMARY PATIENT IS A&OX 2 TO 3 AT TIMES, HARD TO ASSESS AT TIMES DUE TO THE PATIENT'S ABILITY TO VERBALIZE WELL. PATIENT HAD NEW MEPILEX'S OVER WOUNDS AND WAFFLE PAD IN PLACE. HAD AT BEDSIDE, DOCTOR TALKED TO THE PATIENT AND ABOUT POTENTIAL DISCHARGE ON FRIDAY. PATIENT IS ABLE TO MAKE NEEDS KNOWN BY PRESSING CALL LIGHT AND TAKING TIME TO LISTEN TO THE PATIENT TO UNDERSTAND WHAT SHE IS STATING. CALL LIGHT IS IN PLACE, SHE IS CALLING APPROPRIATELY, NO DISTRESS NOTED.
--- NOTE | 2025-08-11 18:19 | NUR ---
THIS REGISTERED VETERINARY TECHNICIAN HAS REVIEWED AND AGREES WITH ALL NOTES AND ASSESSMENTS BY WEI DHILLON.
[2025-08-11 19:30] VITALS: BP 127/70
[2025-08-11 20:27] LABS: Vancomycin, Random 20.3 ug/mL
[2025-08-12 03:16] VITALS: BP 114/53
--- NOTE | 2025-08-12 04:18 | NUR ---
SHIFT SUMMARY; PATIENT SLEPT IN LONG INTERVALS, RLE LESS REDNESS AND EDEMA NOTED. DID GIVE TYLENOL FOR DISCOMFORTS. NO BM OF THIS TIME.
[2025-08-12 07:21] VITALS: BP 121/60
[2025-08-12 08:07] LABS: Hematocrit 34.7 % (33.0-51.0); Hemoglobin 11.9 g/dL (11.5-16.0); Mean Corpuscular HGB Conc 34.3 g/dL (31.5-36.5); Mean Corpuscular Volume 91 fL (80-100); NRBC ABSOLUTE 0.00 K/mm3 (0.00-0.02); NRBC Auto 0.0 /100 WBC (0.0-0.2); Platelet Count 206 K/mm3 (150-400); RDW Coefficient Variation 13.2 % (11.7-14.2); RDW Standard Deviation 43.2 fL (35.1-46.3)
[2025-08-12 08:21] LABS: Anion Gap 10.0 mmol/L (3-11); Blood Urea Nitrogen 45.0 mg/dL (8-24); CO2, Blood 31.0 mmol/L (21-32); Calcium, Blood 8.5 mg/dL (8.5-10.1); Chloride, Blood 94.0 mmol/L (98-108); Creatinine, Blood 1.68 mg/dL (0.40-1.00); Glucose, Blood 228.0 mg/dL (70-99); Potassium, Blood 3.5 mmol/L (3.5-5.5); Sodium, Blood 131.0 mmol/L (136-145)
[2025-08-12 08:23] LABS: Vancomycin, Random 18.7 ug/mL
[2025-08-12 08:28] LABS: BAND PERCENT MAN 5 % (0-8); BASOPHILS ABSOLUTE MAN 0.00 K/mm3 (0.00-0.23); BASOPHILS PERCENT MAN 0 % (0-2); EOSINOPHILS ABSOLUTE MAN 0.10 K/mm3 (0.00-0.68); EOSINOPHILS PERCENT MAN 1 % (0-6); LYMPHOCYTES ABSOLUTE MAN 0.87 K/mm3 (0.84-5.20); LYMPHOCYTES PERCENT MAN 8 % (21-46); MONOCYTES ABSOLUTE MAN 1.19 K/mm3 (0.16-1.47); MONOCYTES PERCENT MAN 11 % (4-13); MYELOCYTE ABSOLUTE MAN 0.10 K/mm3 (0.00-0.00); MYELOCYTE PERCENT MAN 1 % (0-0); NEUTROPHILS ABSOLUTE MAN 8.60 K/mm3 (1.96-9.15); SEG NEUTROPHILS PERCENT MAN 74 % (41-73)
[2025-08-12 15:59] VITALS: BP 140/90
--- NOTE | 2025-08-12 17:11 | NUR ---
SHIFT SUMMARY PATIENT HAS A HARD TIME COMMUNICATING WITH STAFF, AT TIMES ABLE TO IDENTIFY SELF, PLACE, PERSON, AND SITUATION. STILL HAS HAD NO BM FOR "4" DAYS WITH MEDICATING PER EMAR, PROVIDER MADE AWARE. BLOOD SUGARS HAS BEEN STAYING ELEVATED WITH CURRENT INSULIN, PROVIDER MADE AWARE. PLANS ARE TO HAVE PATIENT IN CHAIR TOMORROW. PATIENT IS ABLE TO COMMUNICATE WITH STAFF IF GIVEN TIME, ABLE TO MAKE KNOWN, AND IS ABLE TO USE THE CALL LIGHT THAT IS WITHIN REACH.
--- NOTE | 2025-08-12 17:56 | NUR ---
THIS MOLDER SHOULDER PAD HAS REVIEWED AND AGREES WITH ALL NOTES AND ASSESSMENTS BY WEI DHILLON.
[2025-08-12 19:56] VITALS: BP 132/76
[2025-08-13 03:37] VITALS: BP 120/72
--- NOTE | 2025-08-13 05:23 | NUR ---
PT IS FRUSTRATED WITH HER EXPRESSIVE APHASIA HOWEVER WE WERE ABLE TO COMMUNICATE ABOUT HER NEEDS. USING A PUREWICK FOR ELIMINATION WITH AN ATTENDS WELL. PATIENT CONTINUES TO EXPRESS HER DESIRE TO "GET OUT OF HERE" AND WE DISCUSSED THAT SHE NEEDS THE MEDICATION TO MAKE HER LEG FEEL BETTER AND SHE CALMED. IV ABX RAN WITH NO ISSUES. NO ACUTE EVENTS OVER NIGHT. BED IN LOW POSITION, CALL BENNETT ATTACHED TO HER GOWN FOR EASY ACCESS, AND BELONGINGS WITHIN REACH.
[2025-08-13 06:34] LABS: BASOPHILS ABSOLUTE AUTO 0.04 K/mm3 (0.00-0.23); BASOPHILS PERCENT AUTO 0 % (0-2); EOSINOPHILS ABSOLUTE AUTO 0.02 K/mm3 (0.00-0.68); EOSINOPHILS PERCENT AUTO 0 % (0-6); Hematocrit 35.9 % (33.0-51.0); Hemoglobin 12.0 g/dL (11.5-16.0); IMMATURE GRAN ABSOLUTE AUTO 0.55 K/mm3 (0.00-0.10); IMMATURE GRAN PERCENT AUTO 5 % (0-1); LYMPHOCYTES ABSOLUTE AUTO 1.18 K/mm3 (0.84-5.20); LYMPHOCYTES PERCENT AUTO 11 % (21-46); MONOCYTES ABSOLUTE AUTO 0.88 K/mm3 (0.16-1.47); MONOCYTES PERCENT AUTO 8 % (4-13); Mean Corpuscular HGB Conc 33.4 g/dL (31.5-36.5); Mean Corpuscular Volume 90 fL (80-100); NEUTROPHILS ABSOLUTE AUTO 8.25 K/mm3 (1.96-9.15); NEUTROPHILS PERCENT AUTO 76 % (41-73); NRBC ABSOLUTE 0.00 K/mm3 (0.00-0.02); NRBC Auto 0.0 /100 WBC (0.0-0.2); Platelet Count 199 K/mm3 (150-400); RDW Coefficient Variation 13.1 % (11.7-14.2); RDW Standard Deviation 43.2 fL (35.1-46.3)
[2025-08-13 07:32] VITALS: BP 130/64
[2025-08-13 07:37] LABS: Anion Gap 10.0 mmol/L (3-11); Blood Urea Nitrogen 46.0 mg/dL (8-24); CO2, Blood 30.0 mmol/L (21-32); Calcium, Blood 8.2 mg/dL (8.5-10.1); Chloride, Blood 92.0 mmol/L (98-108); Creatinine, Blood 1.61 mg/dL (0.40-1.00); Glucose, Blood 233.0 mg/dL (70-99); Potassium, Blood 3.4 mmol/L (3.5-5.5); Sodium, Blood 129.0 mmol/L (136-145)
[2025-08-13] MEDS ORDERED: Magnesium Citrate 300 ML BTL PO ONE (09:00)
[2025-08-13] MEDS ORDERED: Docusate Sodium/Senna 1 Tab PO PRN (09:00)
--- NOTE | 2025-08-13 09:15 | NUR ---
ASSUMPTION OF CARE: ASSUMED CARE OF PATIENT, OVERSEEING CARE OF ORIENTING NURSE, DANITZA. PT AWAKE DURING SHIFT CHANGE REPORT. LYING IN BED c HOB ELEVATED. RLE ELEVATED ON PILLOWS. MUMBLED SPEECH SECONDARY TO Hx CVA. BREATHING EVEN AND UNLABORED. PUREWICK IN PLACE. LIFT SHEET BENEATH PATIENT. PATIENT REMINDED PT/OT WOULD LIKE HER IN RECLINER TODAY; PT DECLINES. WILL ATTEMPT AGAIN AT A LATER TIME. CALL LIGHT WITHIN REACH.
[2025-08-13 13:52] LABS: Vancomycin, Random 20.4 ug/mL
[2025-08-13 14:33] VITALS: BP 138/72
--- NOTE | 2025-08-13 16:44 | NUR ---
THIS RN REVIEWED DOCUMENTATION OF ORIENTING NURSE, WEI BOSCH.
--- NOTE | 2025-08-13 17:43 | NUR ---
SHIFT SUMMARY PATIENT A&O X4. EXPRESSIVE APHASIA BUT USES GESTURES AND EXPRESSIONS TO EFFECTIVELY COMMUNICATE HER NEEDS. PATIENT IS PAINFUL AND DID NOT TOLERATE SITTING UP IN THE CHAIR TODAY. INCONTINENT WITH PUREWICK. TREATED WITH MAGCITRATE FOR CONSTIPATION WITH NO RESULT AT THIS TIME. RLQ FIRM AND SLIGHTLY DISTENDED. IN TO VISIT. USES CALL LIGHT APPROPRIATELY. BED IN LOWEST POSITION AND CALL LIGHT WITHIN REACH.
[2025-08-13 20:03] VITALS: BP 129/75
--- NOTE | 2025-08-14 05:30 | NUR ---
PT REQUESTED MEDICATION FOR SLEEP HOWEVER WAS ASLEEP WHEN ORDER CAME THROUGH. NO ACUTE EVENTS OVERNIGHT. BED IN LOW POSITION, CALL BENNETT AND POSESSIONS WITHIN REACH.
[2025-08-14 05:39] VITALS: BP 136/67
[2025-08-14 06:22] LABS: BASOPHILS ABSOLUTE AUTO 0.05 K/mm3 (0.00-0.23); BASOPHILS PERCENT AUTO 1 % (0-2); EOSINOPHILS ABSOLUTE AUTO 0.04 K/mm3 (0.00-0.68); EOSINOPHILS PERCENT AUTO 0 % (0-6); Hematocrit 36.9 % (33.0-51.0); Hemoglobin 12.1 g/dL (11.5-16.0); IMMATURE GRAN ABSOLUTE AUTO 0.37 K/mm3 (0.00-0.10); IMMATURE GRAN PERCENT AUTO 4 % (0-1); LYMPHOCYTES ABSOLUTE AUTO 1.45 K/mm3 (0.84-5.20); LYMPHOCYTES PERCENT AUTO 15 % (21-46); MONOCYTES ABSOLUTE AUTO 0.81 K/mm3 (0.16-1.47); MONOCYTES PERCENT AUTO 8 % (4-13); Mean Corpuscular HGB Conc 32.8 g/dL (31.5-36.5); Mean Corpuscular Volume 92 fL (80-100); NEUTROPHILS ABSOLUTE AUTO 6.92 K/mm3 (1.96-9.15); NEUTROPHILS PERCENT AUTO 72 % (41-73); NRBC ABSOLUTE 0.00 K/mm3 (0.00-0.02); NRBC Auto 0.0 /100 WBC (0.0-0.2); Platelet Count 178 K/mm3 (150-400); RDW Coefficient Variation 13.0 % (11.7-14.2); RDW Standard Deviation 43.8 fL (35.1-46.3)
[2025-08-14 06:39] LABS: Anion Gap 12 mmol/L (3-11); Blood Urea Nitrogen 45 mg/dL (8-24); CO2, Blood 31 mmol/L (21-32); Calcium, Blood 8.2 mg/dL (8.5-10.1); Chloride, Blood 92 mmol/L (98-108); Creatinine, Blood 1.71 mg/dL (0.40-1.00); Glucose, Blood 228 mg/dL (70-99); Potassium, Blood 3.5 mmol/L (3.5-5.5); Sodium, Blood 131 mmol/L (136-145); Vancomycin, Random 17.7 ug/mL
[2025-08-14 07:34] VITALS: BP 146/81
[2025-08-14 15:54] VITALS: BP 120/67
--- NOTE | 2025-08-14 18:38 | NUR ---
END OF SHIFT SUMMARY: A&Ox4. PLEASANT AND COOPERATIVE WITH CARE. CALLS APPROPRIATELY AND IS ABLE TO ADVOCATE NEEDS EFFECTIVELY. VSS. BREATHING EVEN AND UNLABORED c RA. INCONTINENT OF BOWEL AND BLADDER c PUREWICK AND ATTENDS IN PLACE. SMALL BOWEL MOVEMENTS TODAY BUT SUPPOSITORY ADMINISTERED TO PROMOTE LARGE BM. TOLERATING PO DIET, THOUGH HAS REFUSED MAJORITY OF MEALS. HAS NOT AMBULATED AND HAS RESISTED GETTING UP TO CHAIR OR SIT UP ON THE SIDE OF THE BED, DESPITE FREQUENT ENCOURAGEMENT. MEDS WHOLE c FLUIDS. 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 PER DR HUGHES: RADHA DC'd AND ADMINISTERED PO LORATADINE. POWERGLIDE TAE PATENT AND FLUSHES BUT DOES NOT DRAW. BED IN LOWEST POSITION, CALL LIGHT WITHIN REACH, ALL NEEDS MET. REPORT TO ONCOMING NURSE.
[2025-08-14 20:17] VITALS: BP 120/81
[2025-08-15 03:37] VITALS: BP 130/68
--- NOTE | 2025-08-15 06:19 | NUR ---
NO ACUTE EVENTS OVER NIGHT. PATIENT DID HAVE A MODERATE SIZE BOWEL MOVEMENT. NO MORE REPORTS OF ITCHING FROM HER RASH. VITALS STABLE. BED IN LOW POSITION, POSESSIONS WITHIN REACH, CALL BENNETT CLIPPED TO GOWN AND BED EXIT ALARM ACTIVATED.
[2025-08-15 06:25] LABS: BASOPHILS ABSOLUTE AUTO 0.04 K/mm3 (0.00-0.23); BASOPHILS PERCENT AUTO 0 % (0-2); EOSINOPHILS ABSOLUTE AUTO 0.07 K/mm3 (0.00-0.68); EOSINOPHILS PERCENT AUTO 1 % (0-6); Hematocrit 37.8 % (33.0-51.0); Hemoglobin 12.7 g/dL (11.5-16.0); IMMATURE GRAN ABSOLUTE AUTO 0.22 K/mm3 (0.00-0.10); IMMATURE GRAN PERCENT AUTO 2 % (0-1); LYMPHOCYTES ABSOLUTE AUTO 1.57 K/mm3 (0.84-5.20); LYMPHOCYTES PERCENT AUTO 16 % (21-46); MONOCYTES ABSOLUTE AUTO 0.88 K/mm3 (0.16-1.47); MONOCYTES PERCENT AUTO 9 % (4-13); Mean Corpuscular HGB Conc 33.6 g/dL (31.5-36.5); Mean Corpuscular Volume 92 fL (80-100); NEUTROPHILS ABSOLUTE AUTO 7.03 K/mm3 (1.96-9.15); NEUTROPHILS PERCENT AUTO 72 % (41-73); NRBC ABSOLUTE 0.00 K/mm3 (0.00-0.02); NRBC Auto 0.0 /100 WBC (0.0-0.2); Platelet Count 175 K/mm3 (150-400); RDW Coefficient Variation 13.1 % (11.7-14.2); RDW Standard Deviation 43.7 fL (35.1-46.3)
[2025-08-15 07:27] VITALS: BP 139/80
[2025-08-15] MEDS ORDERED: CIPR750 PO (09:29)
[2025-08-15] MEDS ORDERED: FURO40 PO (09:29)
[2025-08-15] MEDS ORDERED: VISBIOME 112.51 EACH PO (09:30)
[2025-08-15] MEDS ORDERED: TAMS.4ER PO (09:30)
[2025-08-15] MEDS ORDERED: MELATONIN5 M1 PO (09:30)
--- NOTE | 2025-08-15 15:00 | NUR ---
DISCHARGE REVIEWED DISCHARGE INSTRUCTIONS W/PT AND SPOUSE WHO VERBALIZED UNDERSTANDING, IV REMOVED, PT TRANSPORTED VIA WHEELCHAIR TO DISCHARGE IN PRIVATE VEHICLE W/SPOUSE AND FRIEND @ [phone].
== END 2025-08-15 12:20 | disposition home health service (06) | DRG 871 ==
LOC: ER 09:50 → ICUE 15:18 → MEDS 15:18 → ICUE 16:05 → PCU 08-06 21:50 → MEDS 08-09 16:13
PROVIDERS: Family Medicine; Internal Medicine; Student in an Organized Health Care Education/Training Program; ADMIT Internal Medicine
DX: A41.9 Sepsis, unspecified organism (principal); I50.23 Acute on chronic systolic (congestive) heart failure; R65.21 Severe sepsis with septic shock; I69.351 Hemiplegia and hemiparesis following cerebral infarction affecting right dominant side; L03.115 Cellulitis of right lower limb; E87.20 Acidosis, unspecified; N17.9 Acute kidney failure, unspecified; E87.1 Hypo-osmolality and hyponatremia; I13.0 Hypertensive heart and chronic kidney disease with heart failure and stage 1 through stage 4 chronic kidney disease, or unspecified chronic kidney disease; N39.0 Urinary tract infection, site not specified; Z68.42 Body mass index [BMI] 45.0-49.9, adult; K21.9 Gastro-esophageal reflux disease without esophagitis; G40.909 Epilepsy, unspecified, not intractable, without status epilepticus; I25.10 Atherosclerotic heart disease of native coronary artery without angina pectoris; E78.5 Hyperlipidemia, unspecified; I25.2 Old myocardial infarction; I69.320 Aphasia following cerebral infarction; E11.22 Type 2 diabetes mellitus with diabetic chronic kidney disease; N18.30 Chronic kidney disease, stage 3 unspecified; I48.91 Unspecified atrial fibrillation; D69.6 Thrombocytopenia, unspecified; N20.0 Calculus of kidney; K59.00 Constipation, unspecified; E66.01 Morbid (severe) obesity due to excess calories; Z90.49 Acquired absence of other specified parts of digestive tract; Z87.891 Personal history of nicotine dependence; Z79.84 Long term (current) use of oral hypoglycemic drugs; Z79.899 Other long term (current) drug therapy
CPT/HCPCS: 0202U; 36415; 51701; 73701; 74176; 76770; 80048; 80053; 80069; 80202; 81001; 82010; 82570; 82803; 82947; 83605; 83690; 83735; 83880; 84300; 84540; 85025; 85027; 85651; 86140; 87040; 87077; 87086; 87147; 87186; 93971; 96361; 96374; 96375; 97110; 97112; 97162; 97166; 97530; 99285-25; A9270; C1751; C8929; J0690; J0692; J0696; J0780; J1650; J1885; J1938; J2405; J3373; J7030; J7040; J7050; Q9957; Q9967